=== PATIENT | male | born 1985 | race Two or more races ===

== ENCOUNTER 2020-07-04 10:19 | Outpatient (CLI) | payer OTHER, SELFPAY ==
[2020-07-04 10:38] LABS: Basophils Percent Auto 0.4 % (0.2-1.2); Eosinophils Percent Auto 0.2 % (0-4.4); Hematocrit 44.6 % (42.0-52.0); Hemoglobin 15.2 g/dL (14.0-18.0); Immature Granulocyte Absolute 0.01 K/mm3 (0.00-0.031); Immature Granulocyte Percent A 0.2 % (0-0.5); Lymphocytes Absolute Auto 0.99 K/mm3 (0.9-3.2); Lymphocytes Percent Auto 18.2 % (18.3-44.2); Mean Corpuscular HGB Conc 34.1 g/dl (32-36); Mean Corpuscular Hemoglobin 31.3 pg (26-34); Mean Corpuscular Volume 91.8 fl (80-100); Monocytes Absolute Auto 0.5 K/mm3 (0.1-0.6); Monocytes Percent Auto 8.3 % (2.6-8.5); Neutrophils Percent Auto 72.7 % (45.5-73.1); Red Blood Count 4.86 M/mm3 (4.6-6.20); Red Cell Distribution Width 13.2 % (11.5-14.5); White Blood Count 5.4 K/mm3 (4.5-10.0)
[2020-07-04 10:49] LABS: Platelet Count Result 99 k/mm3 (150-375)
[2020-07-04 16:33] LABS: Iron 122 ug/dL (49-181)
[2020-07-04 16:36] LABS: Alanine Aminotransferase 26 U/L (4-50); Alkaline Phosphatase 53 U/L (38-126); Anion Gap 8 mmol/L (8-16); Aspartate Amino Transferase 25 U/L (17-59); Blood Urea Nitrogen 23 mg/dL (9-20); Calcium 9.6 mg/dL (8.4-10.2); Carbon Dioxide 32 mmol/L (22-30); Chloride 102 mmol/L (98-107); Estimated Glomerular Filt Rate > 60; Glucose 117 mg/dL (75-110); Potassium 4.2 mmol/L (3.4-5.0); Sodium 142 mmol/L (137-145)
[2020-07-04 16:43] LABS: Percent Iron Saturation 39 % (20-50)
[2020-07-04 17:43] LABS: Folic Acid 12.9 ng/mL (2.76->20)
== END 2020-07-04 10:20 | disposition home or self-care (01) ==
LOC: ANHLAB 10:26
PROVIDERS: Visit Provider Internal Medicine Hematology & Oncology
DX: D69.59 Other secondary thrombocytopenia (principal)
CPT/HCPCS: 36415; 80053; 82607; 82728; 82746; 83540; 83550; 85025

== ENCOUNTER → 2020-07-11 07:20 | Outpatient (CLI) | payer OTHER, SELFPAY ==
--- NOTE | ~2020-07-11 | US_ITS ---
EXAMINATION: US abdomen complete DATE: 07/11/2020 08:26 INDICATION: Other secondary thrombocytopenia TECHNIQUE: Multiple grayscale and Doppler ultrasound images of the abdomen were obtained. COMPARISON: None available FINDINGS: The head and body of the pancreas are normal. The pancreatic tail is obscured by bowel gas. The liver is normal with normal echogenicity and echotexture. No surface nodularity. Normal hepatope napoleon flow in the main portal vein. There are multiple small, immobile hyperechoic foci in the liver wi thout posterior shadowing which measure up to 3 mm. There is no gallbladder wall thickening or perich olecystic fluid. The normal common bile duct measures 3 mm. There was no sonographic Varela sign. The visualized portions of the aorta and inferior vena cava are normal. The right kidney measures 10.5 x 4.0 x 5.8 cm. The left kidney measures 11.5 x 5.8 x 4.8 cm. The kidn eys demonstrate normal parenchymal echogenicity. There is no hydronephrosis. The spleen is normal in appearance and measures 10.3 cm. IMPRESSION: 1. No sonographic correlate for the patient's symptoms. 2. Multiple small echogenic foci in the gallbladder, likely polyps. Reviewed, dictated and finalized at location A. CH PROFESSOR
== END ==
PROVIDERS: PCP Nurse Practitioner Adult Health; Visit Provider Internal Medicine Hematology & Oncology
DX: D69.59 Other secondary thrombocytopenia (principal)
CPT/HCPCS: 76700

== ENCOUNTER 2021-01-15 15:42 | Outpatient (CLI) | payer OTHER, SELFPAY ==
[2021-01-15 15:56] LABS: Basophils Percent Auto 0.3 % (0.2-1.2); Eosinophils Absolute Auto 0.1 K/mm3 (0-0.3); Eosinophils Percent Auto 0.7 % (0-4.4); Hematocrit 44.9 % (42.0-52.0); Hemoglobin 15.4 g/dL (14.0-18.0); Immature Granulocyte Absolute 0.02 K/mm3 (0.00-0.031); Immature Granulocyte Percent A 0.3 % (0-0.5); Lymphocytes Absolute Auto 2.52 K/mm3 (0.9-3.2); Lymphocytes Percent Auto 34.2 % (18.3-44.2); Mean Corpuscular HGB Conc 34.3 g/dl (32-36); Mean Corpuscular Hemoglobin 30.9 pg (26-34); Mean Corpuscular Volume 90.2 fl (80-100); Mean Platelet Volume 12.8 fl (7.4-10.4); Monocytes Absolute Auto 0.5 K/mm3 (0.1-0.6); Monocytes Percent Auto 6.5 % (2.6-8.5); Neutrophils Absolute Auto 4.3 K/mm3 (1.3-6.7); Platelet Count Result 116 k/mm3 (150-375); Red Blood Count 4.98 M/mm3 (4.6-6.20); Red Cell Distribution Width 13.1 % (11.5-14.5); White Blood Count 7.4 K/mm3 (4.5-10.0)
[2021-01-15 16:00] LABS: Atypical Lymphocytes Present; Platelet Estimate Decreased (Adequate)
== END 2021-01-15 15:43 | disposition home or self-care (01) ==
PROVIDERS: PCP Nurse Practitioner Adult Health; Visit Provider Internal Medicine Hematology & Oncology
DX: D69.59 Other secondary thrombocytopenia (principal)
CPT/HCPCS: 36415; 85025

== ENCOUNTER 2023-11-03 12:36 | Emergency (ER) | payer SELFPAY ==
--- NOTE | ~2023-11-03 | CT_ITS ---
EXAMINATION: CT brain wo con DATE: 11/03/2023 14:51 INDICATION: Headache. Sinus pressure. TECHNIQUE: Computed tomography (CT) of the head was performed without intravenous contrast. The mA wa s adjusted according to patient size. Iterative reconstruction technique was employed. The dose-lengt h product was 681.00 mGy-cm. COMPARISON: None FINDINGS: There is no intracranial hemorrhage, acute infarction, or abnormal intracranial mass lesion . The ventricles are normal in size. There is mucosal thickening in the paranasal sinuses including m oderate mucosal thickening in left maxillary sinus and near complete opacification of the left ethmoi d sinuses. There is fluid in the frontal and left ethmoid sinuses. There is a small right mastoid eff usion. The orbits are normal. IMPRESSION: 1. Normal brain. 2. Acute sinusitis. Reviewed, dictated and finalized at location A. L PUMP OPERATOR
[2023-11-03 12:55] VITALS: BP 121/87; PULSE 120; RESP 16; TEMP 37.5; O2SAT 99
[2023-11-03 14:04] LABS: Influenza A QL RT-PCR Negative (Negative); Influenza B QL RT-PCR Negative (Negative); RSV RNA, RT-PCR Negative (Negative); SARS-CoV-2 RNA PCR Negative (Negative)
--- NOTE | 2023-11-03 14:39 | ED.GENADULT ---
HPI - General Adult General Chief complaint: Headache Stated complaint: sinus headache Time Seen by Provider: 11/03/23 13:13 History of Present Illness HPI narrative: 38-year-old male presenting to the emergency department for evaluation for sinus pressure. Patient states he began having some left-sided nasal drainage and increased low left sinus pressure on Friday. Symptoms occurred on Friday and then again today. Patient denies any associated numbness or weakness. Patient has not been taking any Tylenol or ibuprofen for the symptoms. Related Data Allergies Allergy/AdvReac Type Severity Reaction Status Date / Time No Known Allergies Allergy Verified 11/03/23 15:14 Review of Systems Review of Systems: All systems reviewed & are unremarkable except as noted in HPI and below Exam Narrative: APPEARANCE: Well appearing, no pain, no distress, well-nourished. HEAD: Left maxillary and frontal sinus pressure EYES: PERRLA/EOMI, conjunctivae clear. NOSE: Normal no drainage EARS:TMS clear with good light reflex. THROAT: Pharynx clear, no exudate. NECK: Supple. No adenopathy, no masses. RESPIRATORY: Airway patent, respirations nonlabored. Clear to auscultation bilaterally, no rales, rhonchi, wheezing. CARDIOVASCULAR: Regular rate and rhythm without murmurs rubs or gallops. ABDOMINAL: Soft, nontender, nondistended, normal bowel sounds MUSCULOSKELETAL: Moves all extremities. Strength/ROM intact, No edema, No calf tenderness. NEURO: Alert. Cranial nerves II through XII intact. Grossly intact Course Course Emergency Course: Patient was treated for sinusitis with doxycycline encouraged to have close follow-up with primary care physician Vital Signs Vital signs: Vital Signs Temperature 99.5 F 11/03/23 12:55 Pulse Rate 120 H 11/03/23 12:55 Respiratory Rate 16 11/03/23 12:55 Blood Pressure 121/87 11/03/23 12:55 Pulse Oximetry 99 11/03/23 12:55 Temperature 99.0 F 11/03/23 15:15 Pulse Rate 67 11/03/23 15:15 Respiratory Rate 14 11/03/23 15:15 Blood Pressure 122/71 11/03/23 15:15 Pulse Oximetry 100 11/03/23 15:15 Medical Decision Making [facility] Narrative Medical decision making narrative: 38-year-old male presenting to the emergency department for evaluation of left-sided sinus pressure. Patient does complain pain behind his left eye as well. CT scan did show evidence of sinusitis. Patient was started on doxycycline 100 mg b.i.d. with 1st dose given in emergency department. Patient was also advised to take Claritin. Differential Diagnosis Differential Diagnosis: Periorbital cellulitis, sinusitis, headache Vital Signs Vital Signs: Vital Signs Temperature 99.5 F 11/03/23 12:55 Pulse Rate 120 H 11/03/23 12:55 Respiratory Rate 16 11/03/23 12:55 Blood Pressure 121/87 11/03/23 12:55 Pulse Oximetry 99 11/03/23 12:55 Temperature 99.0 F 11/03/23 15:15 Pulse Rate 67 11/03/23 15:15 Respiratory Rate 14 11/03/23 15:15 Blood Pressure 122/71 11/03/23 15:15 Pulse Oximetry 100 11/03/23 15:15 Lab Data Lab results reviewed: Yes I reviewed the patient's lab results. Labs: Lab Results 11/03/23 Range/Units 13:19 Influenza A (RT-PCR) Negative (Negative) Influenza B (RT-PCR) Negative (Negative) RSV (RT-PCR) Negative (Negative) SARS-CoV-2 RNA (RT-PCR) Negative (Negative) Imaging Data Radiologist's impression: Impressions Head CT 11/03/23 14:55 IMPRESSION: 1. Normal brain. 2. Acute sinusitis. Discharge Plan Discharge Clinical Impression: Sinusitis Patient Disposition: Home, Self-Care Condition: Stable Instructions: Antibiotic Form, Sinusitis (ED), Acute Headache (ED) Additional Instructions: Tylenol and ibuprofen for pain control. Antibiotic as directed until completed. Have close follow-up with your primary care physician. Prescriptions: New doxycycline hyclate 100 mg caps
[2023-11-03] MEDS: Please add drug allergy info to patient profile. 1 EACH XX (15:14)
[2023-11-03 15:15] VITALS: BP 122/71; PULSE 67; RESP 14; TEMP 37.2; O2SAT 100
[2023-11-03] MEDS: DOXYCYCLINE HYCLATE 100 MG TABLET PO (15:15)
== END 2023-11-03 15:16 | disposition home or self-care (01) ==
PROVIDERS: Emergency Provider Emergency Medicine; PCP Nurse Practitioner Adult Health
DX: J01.90 Acute sinusitis, unspecified (principal); Z20.822 Contact with and (suspected) exposure to COVID-19
CPT/HCPCS: 70450; 87637; 99284; A9270